=== PATIENT | male | born 1975 | race Caucasian/White ===

== ENCOUNTER → 2016-08-10 | Outpatient (CLI) | payer BC ==
[2016-08-10 10:10] LABS: BASOPHILS # (AUTO) 0.03 10*3/UL; BASOPHILS % (AUTO) 0.3 % (0-1); HEMATOCRIT 48.8 % (42.0-52.0); HEMOGLOBIN 16.7 g/dL (14.0-18.0); IMM GRAN % (AUTO) 0.2 % (0-5); IMM GRAN# (AUTO) 0.02 10*3/UL; LYMPHOCYTES # (AUTO) 1.31 10*3/uL; LYMPHOCYTES % (AUTO) 15.3 % (10-50); MEAN CORPUSCULAR HEMOGLOBIN 30.8 PG (27-31); MEAN CORPUSCULAR HGB CONC 34.2 g/dL (33-37); MEAN PLATELET VOLUME 10.1 FL (7.4-12.2); MONOCYTES % (AUTO) 9.3 % (5-15); NEUTROPHILS # (AUTO) 6.25 10*3/UL; NEUTROPHILS % (AUTO) 72.9 % (50-80); RDW COEFFICIENT OF VARIATION 12.9 % (11.5-14.5); RED BLOOD COUNT 5.43 10^6/uL (4.70-6.10); WHITE BLOOD COUNT 8.58 10^3/uL (4.8-10.8)
[2016-08-10 10:12] LABS: PLATELET MORPHOLOGY COMMENT NORMAL MORPHOLOGY (NORM)
[2016-08-10 10:21] LABS: ASPARTATE AMINO TRANSFERASE 23 IU/L (21-57); BILIRUBIN,TOTAL 1.7 mg/dL (0.3-1.2); BLOOD UREA NITROGEN 13 mg/dL (7-22); CALCIUM 9.4 mg/dL (8.7-10.7); CHLORIDE 103 meq/L (98-112); EST GLOMERULAR FILTRATION > 60 (>60 ml/min/1.73m(2)); GLUCOSE 87 mg/dL (78-110); POTASSIUM 4.1 meq/L (3.8-5.2); SODIUM 142 meq/L (135-145); TOTAL PROTEIN 7.3 g/dL (6.1-8.0)
[2016-08-10 11:47] LABS: FREE T4 (FREE THYROXINE) 1.33 ng/dL (0.93-1.71)
== END ==
LOC: MOB LAB 09:46
PROVIDERS: ATTEND Physician Assistant Medical
DX: R42 Dizziness and giddiness (principal); E86.0 Dehydration; R11.0 Nausea
CPT/HCPCS: 36415; 80053; 84439; 84443; 85025